=== PATIENT | male | born 1940 | race Caucasian/White ===

== ENCOUNTER 2016-04-22 08:41 | Emergency (ER) | payer OTHER ==
[~2016-04-22] VITALS: Ht 162.6 cm; Wt 45.0 kg
[2016-04-22 08:43] VITALS: Ht 162.6 cm; Wt 45.0 kg
[2016-04-22] MEDS ORDERED: IPRATROPIUM (NEB) 0.5 MG/2.5 ML AMP INH STA ×2 (08:45→13:40)
[2016-04-22] MEDS ORDERED: METHYLPREDNISOLONE 125 MG INJ IV STA (08:45)
[2016-04-22] MEDS ORDERED: ALBUTEROL 0.5% (NEB) 2.5 MG/0.5 ML AMP INH STA ×2 (08:45→13:40)
[2016-04-22] MEDS ORDERED: SUCCINYLCHOLINE CHLORIDE 100 MG/5 ML SYG IV STA (09:13)
[2016-04-22] MEDS ORDERED: TRAZ100T15 PO (09:13)
[2016-04-22] MEDS ORDERED: PROPOFOL 100 ML IV STA (09:13)
[2016-04-22 09:15] LABS: ADD SCAN DIFF NO
[2016-04-22 09:16] LABS: AADO2 Arterial 367.7 mmHg (7.0-24.0); Allen Test ACCEPTAB; Arterial Base Excess -0.7 mmol/L (-3.0-3); Arterial COHb 2.1 % (0.0-3.0); Arterial Fraction of Oxyhgb 97.1 % (93.0-99.0); Arterial HCO3 25.2 mmol/L (22.0-26.0); Arterial MetHb 0.2 % (0.0-1.5); Arterial Total Hemglobin 14.5 g/dl (12.0-18.0); Blood Gas IEPAP 18/5; Blood Gas PS 13; MODE MASK - BIPAP
[2016-04-22] MEDS ORDERED: LORA1TAB PO (09:17)
[2016-04-22 09:19] LABS: BASOPHILS % 0.2 % (0.0-2.0); EOSINOPHILS # 0.1 10^3/ul (0.0-0.5); EOSINOPHILS % 0.7 % (0.0-7.0); HEMOGLOBIN 13.5 g/dl (14.0-18.0); LYMPHOCYTES # 1.4 10^3/ul (0.8-2.9); LYMPHOCYTES % 8.3 % (15.0-51.0); MEAN CORPUSCULAR HEMOGLOBIN 34.4 pg (29.0-33.0); MEAN CORPUSCULAR HGB CONC 32.9 g/dl (32.0-37.0); MEAN CORPUSCULAR VOLUME 104.3 fl (82.0-101.0); MEAN PLATELET VOLUME 9.6 fl (7.4-10.4); MONOCYTE # 0.5 10^3/ul (0.3-0.9); MONOCYTES % 3.3 % (0.0-11.0); NEUTROPHIL # 14.1 10^3/ul (1.6-7.5); NEUTROPHILS % 86.8 % (39.0-77.0); PLATELET COUNT 280 10^3/UL (140-415); RED BLOOD COUNT 3.93 10^6/ul (4.70-6.10); RED CELL DISTRIBUTION WIDTH 17.5 % (11.5-14.5); WHITE BLOOD COUNT 16.2 10^3/ul (4.8-10.8)
--- NOTE | 2016-04-22 09:25 | RADRPT ---
PROCEDURE: Chest Radiograph. CLINICAL INDICATION: Shortness of breath TECHNIQUE: Single frontal chest radiograph. COMPARISON: None available FINDINGS: The cardiomediastinal silhouette is within normal limits. The lungs are hyperinflated. There are di ffuse interstitial opacities likely indicative of chronic lung changes. Minimal blunting of the b ilateral costophrenic angles is likely related to hyperinflation and chronic pleural scarring, thoug h trace effusions could be present. The bones are intact. IMPRESSION: 1. Pulmonary hyperinflation and chronic lung changes, correlate with COPD. 2. Minimal blunting of the costophrenic angles may represent trace effusions which can be confirmed on the lateral view. RPTAT: AA .Raj Sutton MD, Date Time Electronically viewed and signed by .Raj Sutton MD, MD on 04/22/2016 09:25 .B/
[2016-04-22 09:26] LABS: INR 1.39; PROTIME 17.1 Sec (12.2-14.2); PT RATIO 1.3
[2016-04-22 09:27] LABS: PARTIAL THROMBOPLASTIN TIME 22.6 Sec (25.0-35.0)
[2016-04-22] MEDS ORDERED: LORAZEPAM 2 MG INJ IV ONE ×2 (09:30→14:00)
[2016-04-22] MEDS ORDERED: LEVOFLOXACIN 750MG/D5W (PMX) 150 ML IVPB ONE (09:30)
[2016-04-22 10:30] LABS: ALBUMIN 3.7 g/dl (3.3-4.9)
[2016-04-22 10:31] LABS: CHLORIDE 98 mmol/L (97-110); POTASSIUM 4.5 mmol/L (3.5-5.1); SODIUM 139 mmol/L (135-144)
[2016-04-22 10:33] LABS: ANION GAP 17 (8-16); ASPARTATE AMINO TRANSFERASE 67 IU/L (15-46); BILIRUBIN,INDIRECT 0.4 mg/dl (0-1.1); BILIRUBIN,TOTAL 0.4 mg/dl (0.2-1.3); CARBON DIOXIDE 29 mmol/L (21-31); CREATININE 0.83 mg/dl (0.61-1.24)
[2016-04-22 10:34] LABS: ALANINE AMINOTRANSFERASE 74 IU/L (13-69); ALBUMIN/GLOBULIN RATIO 1.42; ALKALINE PHOSPHATASE 89 IU/L (42-121); BLOOD UREA NITROGEN 28 mg/dl (7-20); CALCIUM 9.2 mg/dl (8.4-10.2); GLUCOSE 93 mg/dl (70-220); TOTAL PROTEIN 6.3 g/dl (6.1-8.1)
[2016-04-22 10:43] LABS: B-TYPE NATRIURETIC PEPTIDE 184 PG/ML (0-125)
[2016-04-22 10:47] LABS: TROPONIN-I < 0.012 ng/ml (0.00-0.12)
--- NOTE | 2016-04-22 11:16 | ERA ---
ER Documentation Chief Complaint Date/Time DATE: 04/22/16 TIME: 08 Chief Complaint BIB RA FROM HOME LOW O2 SATS , SOB , PT RECIEVED ON CPAP HPI 76-year-old male comes to the emergency department by ambulance for evaluation of shortness of breath. Patient is critically ill and provides very limited history. History is available from the family. According to the family, patient has end-stage COPD and has been on oxygen at home. His oxygen tank essentially ran out over the last 24 hours. Patient began having increasing shortness of breath and this morning became severely dyspneic and anxious and the paramedics were called. Patient reports no chest pain or palpitations. Patient reports no fevers, chills, sputum production. I have reviewed the art supervisor pre-hospital care. Pre-hospital vital signs were reviewed. Pre-hospital diagnostic tests were reviewed. Upon arrival, patient presents in respiratory distress. ROS All systems reviewed and are negative except as per history of present illness. Medications Home Meds Reported Medications Lorazepam* (Lorazepam*) 1 Mg Tablet, 1 MG PO DAILY Y for ANXIETY, #30 TAB 04/22/16 Trazodone Hcl* (Trazodone Hcl*) 100 Mg Tablet, 100 MG PO QHS, #30 TAB 04/22/16 Allergies Allergies: Coded Allergies: No Known Allergy (Unverified , 04/22/16) PMhx/Soc History of Surgery: No Anesthesia Reaction: No Hx Neurological Disorder: No Hx Respiratory Disorders: Yes (COPD ) Hx Cardiac Disorders: No Hx Psychiatric Problems: No Hx Miscellaneous Medical Probl: Yes (DEPRESSION , ANXIETY ) Hx Alcohol Use: Yes Hx Substance Use: No Hx Tobacco Use: Yes Smoking Status: Current every day smoker FmHx Supportive family at bedside. Otherwise family history noncontributory for chief complaint Physical Exam Vitals Vital Signs Date Time Temp Pulse Resp B/P Pulse Ox O2 Delivery O2 Flow Rate FiO2 04/22/16 11:00 93 26 108/70 98 BIPAP 04/22/16 10:01 98 35 04/22/16 10:00 98 28 123/80 99 BIPAP 04/22/16 08:55 99 95 100 04/22/16 08:43 98.0 103 28 180/97 86 Physical Exam GENERAL: Patient is critically ill in severe respiratory distress HEENT: Pupils equal, round, and reactive to light. EOMI. There is no scleral icterus. No tracheal deviation JVD or stridor NECK: C-spine is soft and supple, there is no meningismus. There is no cervical lymphadenopathy. LUNGS: Severely diminished tidal volume. Occasional wheeze bilaterally. No rales or consolidative changes. HEART: Tachycardic with no murmurs rubs or gallops ABDOMEN: Soft, non-tender, non-distended. There are bowel sounds in all four quadrants. No rebound or guarding. EXTREMITIES: There is no peripheral cyanosis or edema. No focal swelling or erythema. NEURO: The patient moves all four extremities with 5/5 strength. Cranial nerves II - XII are intact. Normal gait. Alert and oriented SKIN: There is no apparent rash or petechiae. HEME/LYMPHATIC: There is no evidence of excessive bruising or lymphedema. PSYCHIATRIC: Patient is anxious but with an otherwise normal mental status. Result Diagram: 04/22/16 0855 04/22/16 0855 Results 24 hrs Laboratory Tests Test 04/22/16 08:45 04/22/16 08:55 Arterial Blood HCO3 25.2mmol/L Arterial Blood Base Excess -0.7mmol/L Arterial Blood Oxygen Saturation 99.4mmHG Jason Test ACCEPTAB Arterial Blood Gas Puncture Site Right Radial Arterial Blood Carboxyhemoglobin 2.1% Arterial Blood Date Drawn 04/22/2016 9:08:00 AM Arterial Blood Methemoglobin 0.2% Arterial Blood pCO2 (Temp correct) 46.1mmhg Arterial Blood pH (Temp corrected) 7.355 Arterial Blood pO2 (Temp corrected) 299.2mmHG Blood Gas A-a O2 Differential 367.7mmHg Blood Gas Actual Respiration Rate 38 Blood Gas IPAP/EPAP Ratio 18/5 Blood Gas Modality MASK - BIPAP Blood Gas Notified Time 04/22/2016 9:16:00 AM Blood Gas Notified Whom M.D. Blood Gas Pressure Support 13 Blood Gas Respiration Rate 14.0 Blood Gas Specimen Source Blood arterial Blood Gas Temperature 37.0C FiO2 100.0% Oxyhemoglobin Percent 97.1% Total Hemoglobin 14.5g/dl Activated Partial Thromboplast Time 22.6Sec Alanine Aminotransferase (ALT/SGPT) 74IU/L Albumin 3.7g/dl Albumin/Globulin Ratio 1.42 Alkaline Phosphatase 89IU/L Anion Gap 17 Aspartate Amino Transf (AST/SGOT) 67IU/L B-Type Natriuretic Peptide 184PG/ML Basophils # 0.010^3/ul Basophils % 0.2% Blood Urea Nitrogen 28mg/dl Calcium Level 9.2mg/dl Carbon Dioxide Level 29mmol/L Chloride Level 98mmol/L Creatinine 0.83mg/dl Direct Bilirubin 0.00mg/dl Eosinophils # 0.110^3/ul Eosinophils % 0.7% Globulin 2.60g/dl Glucose Level 93mg/dl Hematocrit 41.0% Hemoglobin 13.5g/dl INR International Normalized Ratio 1.39 Indirect Bilirubin 0.4mg/dl Lactic Acid Level 1.9mmol/L Lymphocytes # 1.410^3/ul Lymphocytes % 8.3% Mean Corpuscular Hemoglobin 34.4pg Mean Corpuscular Hemoglobin Concent 32.9g/dl Mean Corpuscular Volume 104.3fl Mean Platelet Volume 9.6fl Monocytes # 0.510^3/ul Monocytes % 3.3% Neutrophils # 14.110^3/ul Neutrophils % 86.8% Nucleated Red Blood Cells # 0.010^3/ul Nucleated Red Blood Cells % 0.0/100WBC Platelet Count 96260^3/UL Potassium Level 4.5mmol/L Prothrombin Time 17.1Sec Prothrombin Time Ratio 1.3 Red Blood Count 3.9310^6/ul Red Cell Distribution Width 17.5% Sodium Level 139mmol/L Total Bilirubin 0.4mg/dl Total Protein 6.3g/dl Troponin I < 0.012ng/ml White Blood Count 16.210^3/ul Current Medications Medications (Trade) Dose Ordered Sig/Yoana Route PRN Reason Start Time Stop Time Status Last Admin Dose Admin Albuterol (Proventil 0.5% (Neb)) 10 mg ONCE STAT INH 04/22/16 08:45 04/22/16 08:47 DC 04/22/16 08:52 Ipratropium [place] (Atrovent 0.02% (Neb)) 1 mg ONCE STAT INH 04/22/16 08:45 04/22/16 08:47 DC 04/22/16 08:52 Methylprednisolone Sodium Succinate (Solu-Medrol) 125 mg ONCE STAT IV 04/22/16 08:45 04/22/16 08:47 DC 04/22/16 08:50 Succinylcholine Chloride 120 mg 120 mg ONCE STAT IV 04/22/16 09:13 04/22/16 09:15 DC Propofol (Diprivan) 100 ml @ 1.35 mls/hr ONCE STAT IV 04/22/16 09:13 04/25/16 11:17 Lorazepam 1 mg 1 mg ONCE ONCE IV 04/22/16 09:30 04/22/16 09:31 DC 04/22/16 09:27 Levofloxacin/ Dextrose (Levaquin 750 Mg/ D5W 150 ml (Pmx)) 150 ml @ 100 mls/hr ONCE ONCE IVPB 04/22/16 09:30 04/22/16 10:59 DC 04/22/16 09:55 Procedures/MDM Patient was taken to a room, seen and evaluated. Comfort measures were initiated. Patient was continued on BiPAP and intubation was considered Diagnostic tests were ordered and reviewed. 3 LEAD RHYTHM STRIP: Sinus tachycardia no ectopy Initial EKG upon arrival was unable to be interpreted secondary to significant baseline artifact related to the patient's respiratory effort. Repeat EKG was performed after settling EK lead EKG reviewed by myself: Normal Sinus Rhythm Normal Thor and intervals No ST elevation, depression, or T wave inversion Impression: Normal EKG RADIOLOGY: reviewed with the radiologist CONSULTATION: [facility] was notified and at the family's request patient was transferred to [facility]. It should be noted that I had a conversation with the family specifically regarding the patient's critical ill status and they were more comfortable with him being transferred to a [facility] facility with their critical care team than staying in our hospital. The risks and benefits of this transfer were discussed in detail. REEVALUATION: Patient is on clinical observation throughout his stay in the emergency department. Patient has responded nicely to benzodiazepine treatment as well as BiPAP support and ultimately has not required intubation. We have been able to titrate down his oxygen level. MEDICAL DECISION MAKING: Patient presents for shortness of breath. Differential diagnosis entertained included asthma, pneumonia, other cardiac and pulmonary concerns. After reviewing the patient's diagnostic tests and clinical presentation, patient appears to have exacerbation of his end-stage COPD complicated by respiratory failure. This is also complicated by his anxiety which according to the family has been severe as well. Although his initial hypoxemia and severe increased work of breathing seemed to be leading towards intubation, fortunately, he has responded nicely to aggressive BiPAP therapy as well as a small amount of sedation and anxiolysis. Ultimately, the patient is improving but will require further observation and respiratory support. I have started him on antibiotics for possibility of community-acquired pneumonia, although his chest x-ray does not demonstrate a significant obvious infiltrate CRITICAL CARE: Time:>35 minutes Patient has a significant chance of clinical deterioration Treatments/Evaluations: Close monitoring and treatment of unstable vital signs, cardiorespiratory, and neurologic status, while maintaining tight balance of fluid, respiratory, and cardiac interventions. Departure Diagnosis: Primary Impression: Respiratory failure Additional Impressions: COPD exacerbation Community acquired pneumonia Condition: Serious DICKSON LITTLEJOHN Apr 22, 2016 11:16
[2016-04-22] MEDS ORDERED: SOD CHLORIDE 0.9% 1,000 ML IV ONE (12:30)
[2016-04-22 14:00] VITALS: BP 116/76; PULSE 80; RESP 24; TEMP 98.9
== END 2016-04-22 14:25 | disposition short-term general hospital (02) ==
LOC: E/R 08:41
DX: J96.90 Respiratory failure, unspecified, unspecified whether with hypoxia or hypercapnia (principal); J44.1 Chronic obstructive pulmonary disease with (acute) exacerbation; J18.9 Pneumonia, unspecified organism; F17.210 Nicotine dependence, cigarettes, uncomplicated
CPT/HCPCS: 36600; 71010; 80053; 82803; 83605; 83880; 84484; 85025; 85610; 85730; 87040; 93005; 94644; 94645; 94660; J0330; J1956; J2060; J2930; J7030; 96374; 96375; 96376